=== PATIENT | male | born 1955 | race Caucasian/White ===

== ENCOUNTER 2017-01-29 10:03 | Inpatient (IN) | payer OTHER ==
[~2017-01-29] VITALS: Ht 200.7 cm; Wt 88.9 kg
[2017-01-29 10:14] VITALS: BP 83/55
[2017-01-29] MEDS ORDERED: FERR324T29 PO (10:30)
[2017-01-29] MEDS ORDERED: METO25TA3 PO (10:30)
[2017-01-29] MEDS ORDERED: DESM0.2T4 PO (10:30)
[2017-01-29] MEDS ORDERED: BENZ2TAB27 PO (10:30)
[2017-01-29] MEDS ORDERED: ZOLP5TAB1 PO (10:30)
[2017-01-29] MEDS ORDERED: ASPI81CT27 PO (10:30)
[2017-01-29] MEDS ORDERED: FLUC100T1 PO (10:30)
[2017-01-29] MEDS ORDERED: ARIP1SOL PO (10:30)
[2017-01-29] MEDS ORDERED: NACL 0.9% 1,000 ML IV ONE (10:55)
[2017-01-29 11:24] LABS: HEMATOCRIT 36.8 % (36-52); MEAN CORPUSCULAR HEMOGLOBIN 33 pg (27-31); MEAN CORPUSCULAR HGB CONC 33 g/dL (33-37); MEAN CORPUSCULAR VOLUME 100 fL (80-94); PLATELET COUNT (AUTO) 40 K/uL (140-450); RED BLOOD CELL COUNT(AUTO) 3.66 MIL/uL (4.20-6.10); WHITE BLOOD COUNT (AUTO) 3.3 K/uL (4.8-10.8)
[2017-01-29 11:40] LABS: LACTIC ACID 0.5 mmol/L (0.4-2.0)
[2017-01-29 11:41] LABS: EOSINOPHILS % (MANUAL) 5 % (0-4); LYMPHOCYTES % (MANUAL) 43 % (20-46); MONOCYTES % (MANUAL) 6 % (5-12); NEUTROPHILS % (MANUAL) 46 (43-65)
[2017-01-29 11:42] LABS: ANISOCYTOSIS 1+; PLATELET ESTIMATE DECREASED; SCHISTOCYTES 1+
[2017-01-29 11:43] LABS: INR 1.3 (0.8-1.2); PARTIAL THROMBOPLASTIN TIME 29.4 secs (22-35.6)
[2017-01-29 11:44] LABS: ANION GAP 7.4 (8-16); CALCIUM 7.7 mg/dL (8.5-10.1); CARBON DIOXIDE 31.4 mmol/L (21-32); CREATININE 0.9 mg/dL (0.7-1.3); POTASSIUM 3.8 mmol/L (3.5-5.1)
[2017-01-29 11:51] LABS: ALBUMIN 2.6 g/dL (3.4-5.0); THYROID STIMULATING HORMONE 2.77 uIU/mL (0.34-3.74); TOTAL BILIRUBIN 0.9 mg/dL (0.0-1.0); TOTAL PROTEIN, SERUM 6.4 g/dL (6.4-8.2)
[2017-01-29] MEDS ORDERED: ONDANSETRON 4 MG/2 ML VIAL IVP PRN (13:00)
[2017-01-29] MEDS ORDERED: MORPHINE SULFATE 2 MG/ML SYR IVP PRN (13:00)
[2017-01-29] MEDS ORDERED: ACETAMINOPHEN 325 MG TAB PO PRN (13:00)
[2017-01-29] MEDS ORDERED: NITROGLYCERIN 2% 1 GM PKT TP ONE (13:25)
[2017-01-29] MEDS ORDERED: ENOXAPARIN 100 MG/ML SYR SUBQ ONE (13:25)
[2017-01-29 14:11] LABS: BILIRUBIN,URINE 2+ (NEGATIVE); BLOOD, URINE NEGATIVE (NEGATIVE); LEUKOCYTE ESTERASE ,URINE NEGATIVE (NEGATIVE); NITRITE, URINE NEGATIVE (NEGATIVE); PROTEIN,URINE 2+ (NEGATIVE); UGLUCOSE NEGATIVE (NEGATIVE)
[2017-01-29 14:20] LABS: APPEARANCE,URINE CLEAR (CLEAR)
[2017-01-29 14:21] LABS: COLOR,URINE AMBER (YELLOW)
[2017-01-29 14:26] LABS: BACTERIA,URINE RARE /HPF (None Seen); ICTOTEST NEGATIVE (NEGATIVE); RBC,URINE NONE SEEN /HPF (0-5); WBC,URINE 0-5 (RARE) /HPF (0-5)
[2017-01-29 14:27] LABS: SQUAMOUS EPITHELIAL CELL,UR None Seen /LPF (0-3 (FEW))
[2017-01-29 17:13] VITALS: BP 109/52
[2017-01-29] MEDS: ASPIRIN 325 MG TABEC PO SCH (18:55)
[2017-01-29 19:26] LABS: CREATINE KINASE MB 2.5 ng/mL (0-3.6)
[2017-01-29 20:00] VITALS: BP 124/86
[2017-01-29 21:02] LABS: AMPHETAMINE, URINE NEG. ng/ml (NEG <=1000); BARBITURATE, URINE NEG. ng/ml (NEG <=200); BENZODIAZEPINE, URINE NEG. ng/mL (NEG <=200); CANNABINOID, URINE NEG. ng/mL (NEG <=50); COCAINE, URINE NEG. ng/mL (NEG <=300); OPIATE, URINE NEG. ng/mL (NEG <=2000); PHENCYCLIDINE SCREEN,URINE NEG. ng/mL (NEG <=25)
[2017-01-30] VITALS: BP 116/61
[2017-01-30 04:00] VITALS: BP 119/79
[2017-01-30 06:31] LABS: HEMATOCRIT 37.7 % (36-52); MEAN CORPUSCULAR HEMOGLOBIN 32 pg (27-31); MEAN CORPUSCULAR HGB CONC 32 g/dL (33-37); MEAN CORPUSCULAR VOLUME 101 fL (80-94); RED BLOOD CELL COUNT(AUTO) 3.74 MIL/uL (4.20-6.10); RED CELL DISTRIBUTION WIDTH 18.2 % (11.6-13.7)
[2017-01-30 06:41] LABS: ALBUMIN 2.2 g/dL (3.4-5.0); CALCIUM 7.8 mg/dL (8.5-10.1); CARBON DIOXIDE 32.2 mmol/L (21-32); POTASSIUM 4.2 mmol/L (3.5-5.1); TOTAL BILIRUBIN 0.6 mg/dL (0.0-1.0); TOTAL PROTEIN, SERUM 5.8 g/dL (6.4-8.2)
[2017-01-30 07:29] LABS: PLATELET COUNT (AUTO) 61 K/uL (140-450); WHITE BLOOD COUNT (AUTO) 3.1 K/uL (4.8-10.8)
[2017-01-30 07:30] LABS: EOSINOPHILS % (MANUAL) 4 % (0-4); LYMPHOCYTES % (MANUAL) 43 % (20-46); MONOCYTES % (MANUAL) 5 % (5-12); NEUTROPHILS % (MANUAL) 48 (43-65)
[2017-01-30 07:31] LABS: ANISOCYTOSIS 1+; OVALOCYTES 1+; POIKILOCYTOSIS 1+
[2017-01-30 07:45] VITALS: BP 124/92
[2017-01-30] MEDS: ASPIRIN 325 MG TABEC PO SCH (08:22)
[2017-01-30] MEDS: ATORVASTATIN 20 MG TAB PO SCH (08:22)
[2017-01-30] MEDS: LISINOPRIL 5 MG TAB PO SCH (08:22)
[2017-01-30] MEDS: FUROSEMIDE 40 MG/4 ML VIAL IVP SCH (08:22)
[2017-01-30] MEDS: ENOXAPARIN 40 MG/0.4 ML SYR SUBQ SCH (09:00)
[2017-01-30] MEDS ORDERED: CARVEDILOL 3.125 MG TAB PO SCH (09:00)
[2017-01-30 12:00] VITALS: BP 111/67
[2017-01-30] MEDS ORDERED: DILTIAZEM 25 MG/5 ML VIAL IVP PRN (13:15)
[2017-01-30 13:25] LABS: CREATINE KINASE MB 1.8 ng/mL (0-3.6)
[2017-01-30 16:00] VITALS: BP 113/56
[2017-01-30 20:00] VITALS: BP 111/82
[2017-01-30] MEDS ORDERED: PNEUMOCOCCAL VACCINE 23 MCG/0.5 ML VIAL IMVAC SCH (20:00)
[2017-01-31] VITALS: BP 113/84
[2017-01-31 04:00] VITALS: BP 127/96
[2017-01-31 06:03] LABS: HEMOGLOBIN 14.5 g/dL (12.0-18.0); MEAN CORPUSCULAR HEMOGLOBIN 33 pg (27-31); MEAN CORPUSCULAR HGB CONC 33 g/dL (33-37); MEAN CORPUSCULAR VOLUME 100 fL (80-94); PLATELET COUNT (AUTO) 41 K/uL (140-450); RED BLOOD CELL COUNT(AUTO) 4.39 MIL/uL (4.20-6.10); RED CELL DISTRIBUTION WIDTH 18.3 % (11.6-13.7); WHITE BLOOD COUNT (AUTO) 4.4 K/uL (4.8-10.8)
[2017-01-31 06:27] LABS: ANION GAP 8.7 (8-16); CALCIUM 8.4 mg/dL (8.5-10.1); CARBON DIOXIDE 32.5 mmol/L (21-32); CREATININE 0.9 mg/dL (0.7-1.3); POTASSIUM 4.2 mmol/L (3.5-5.1); TOTAL BILIRUBIN 0.9 mg/dL (0.0-1.0); TOTAL PROTEIN, SERUM 7.3 g/dL (6.4-8.2)
[2017-01-31 07:03] LABS: BAND % (MANUAL) 5 % (0-8); EOSINOPHILS % (MANUAL) 10 % (0-4); LYMPHOCYTES % (MANUAL) 27 % (20-46); MONOCYTES % (MANUAL) 3 % (5-12); NEUTROPHILS % (MANUAL) 55 (43-65)
[2017-01-31 07:04] LABS: ANISOCYTOSIS 1+; POIKILOCYTOSIS 1+
[2017-01-31 08:00] VITALS: BP 124/72
[2017-01-31] MEDS: FUROSEMIDE 40 MG/4 ML VIAL IVP SCH (08:36)
[2017-01-31] MEDS: CARVEDILOL 6.25 MG TAB PO SCH (08:37)
[2017-01-31] MEDS: LISINOPRIL 5 MG TAB PO SCH (08:37)
[2017-01-31] MEDS: ATORVASTATIN 20 MG TAB PO SCH (08:37)
[2017-01-31] MEDS: ASPIRIN 325 MG TABEC PO SCH (08:37)
[2017-01-31] MEDS: ENOXAPARIN 40 MG/0.4 ML SYR SUBQ SCH (08:38)
[2017-01-31 12:00] VITALS: BP 112/71
[2017-01-31] MEDS ORDERED: ASPI325T49 PO (14:44)
[2017-01-31] MEDS ORDERED: CARV6.25 PO (14:44)
[2017-01-31] MEDS ORDERED: ATOR20TA PO (14:45)
[2017-01-31] MEDS ORDERED: FURO-570 PO (14:46)
[2017-01-31] MEDS ORDERED: LISI2.5T12 PO (14:47)
[2017-01-31 16:00] VITALS: BP 112/84
[2017-01-31 20:00] VITALS: BP 124/79
[2017-02-01] VITALS: BP 124/95
[2017-02-01 04:00] VITALS: BP 147/94
[2017-02-01 07:24] LABS: BASOPHILS # (AUTO) 0.2 K/uL (0.00-0.22); BASOPHILS % (AUTO) 4.7 % (0.0-2.0); EOSINOPHILS # (AUTO) 0.1 K/uL (0-0.4); EOSINOPHILS % (AUTO) 2.3 % (0.0-4.0); HEMATOCRIT 47.9 % (36-52); HEMOGLOBIN 15.6 g/dL (12.0-18.0); LYMPHOCYTES # (AUTO) 1.5 K/uL (2.0-11.5); LYMPHOCYTES % (AUTO) 32.4 % (20.5-51.1); MEAN CORPUSCULAR HEMOGLOBIN 33 pg (27-31); MEAN CORPUSCULAR HGB CONC 33 g/dL (33-37); MEAN CORPUSCULAR VOLUME 100 fL (80-94); MONOCYTES # (AUTO) 0.4 K/uL (0.8-1.0); MONOCYTES % (AUTO) 7.9 % (1.7-9.3); NEUTROPHILS # (AUTO) 2.4 K/uL (1.8-7.7); NEUTROPHILS % (AUTO) 52.7 % (42.2-75.2); PLATELET COUNT (AUTO) 77 K/uL (140-450); RED BLOOD CELL COUNT(AUTO) 4.77 MIL/uL (4.20-6.10); RED CELL DISTRIBUTION WIDTH 18.1 % (11.6-13.7); WHITE BLOOD COUNT (AUTO) 4.6 K/uL (4.8-10.8)
[2017-02-01 07:28] LABS: ALBUMIN 2.6 g/dL (3.4-5.0); ANION GAP 7.2 (8-16); CALCIUM 8.5 mg/dL (8.5-10.1); CARBON DIOXIDE 34.3 mmol/L (21-32); CREATININE 0.8 mg/dL (0.7-1.3); POTASSIUM 4.5 mmol/L (3.5-5.1); TOTAL BILIRUBIN 1.1 mg/dL (0.0-1.0); TOTAL PROTEIN, SERUM 6.7 g/dL (6.4-8.2)
[2017-02-01 07:59] VITALS: BP 130/64
[2017-02-01] MEDS: ENOXAPARIN 40 MG/0.4 ML SYR SUBQ SCH (09:00)
[2017-02-01] MEDS: ATORVASTATIN 20 MG TAB PO SCH (09:13)
[2017-02-01] MEDS: ASPIRIN 325 MG TABEC PO SCH (09:14)
[2017-02-01] MEDS: CARVEDILOL 6.25 MG TAB PO SCH (09:14)
[2017-02-01] MEDS: FUROSEMIDE 40 MG/4 ML VIAL IVP SCH (09:14)
[2017-02-01] MEDS: LISINOPRIL 5 MG TAB PO SCH (09:14)
[2017-02-01 12:00] VITALS: BP 111/70
== END 2017-02-01 15:30 | DRG 293 ==
LOC: MED 10:03 → MTU 13:01
PROVIDERS: ADMIT Hospitalist; ATTEND Hospitalist
DX: I11.0 Hypertensive heart disease with heart failure (principal); D69.6 Thrombocytopenia, unspecified; E86.0 Dehydration; I49.5 Sick sinus syndrome; I48.91 Unspecified atrial fibrillation; F29 Unspecified psychosis not due to a substance or known physiological condition; Z88.8 Allergy status to other drugs, medicaments and biological substances; Z79.82 Long term (current) use of aspirin; I50.43 Acute on chronic combined systolic (congestive) and diastolic (congestive) heart failure; Z79.899 Other long term (current) drug therapy
CPT/HCPCS: 36415; 71010; 71260; 80053; 80305; 81001; 82550; 82553; 83605; 83880; 84443; 84484; 85025; 85379; 85610; 85730; 87081; 90732; 93005; 93970; 96360; 96372; 97116; 97163-GP; 99285; J1650; J1940; J3490; J7030; Q0092; Q9967

== ENCOUNTER 2017-04-05 16:23 | Emergency (ER) | payer OTHER ==
[~2017-04-05] VITALS: Ht 200.7 cm; Wt 86.2 kg
[~2017-04-05 16:23] MED LIST: ARIP1SOL PO; ASPI325T49 PO; ATOR20TA PO; BENZ2TAB27 PO; CARV6.25 PO; DESM0.2T2 PO; FERR324T29 PO; FLUC100T1 PO; FURO-570 PO; LISI2.5T12 PO
[2017-04-05 16:30] VITALS: BP 107/55
[2017-04-05 18:25] LABS: HEMOGLOBIN 10.3 g/dL (12.0-18.0); MEAN CORPUSCULAR HEMOGLOBIN 33 pg (27-31); MEAN CORPUSCULAR HGB CONC 32 g/dL (33-37); MEAN CORPUSCULAR VOLUME 102 fL (80-94); PLATELET COUNT (AUTO) 115 K/uL (140-450); RED BLOOD CELL COUNT(AUTO) 3.14 MIL/uL (4.20-6.10); RED CELL DISTRIBUTION WIDTH 15.4 % (11.6-13.7); WHITE BLOOD COUNT (AUTO) 3.6 K/uL (4.8-10.8)
[2017-04-05 18:33] LABS: ANION GAP 9.7 (8-16); CARBON DIOXIDE 28.7 mmol/L (21-32); CREATININE 0.8 mg/dL (0.7-1.3); POTASSIUM 4.4 mmol/L (3.5-5.1)
[2017-04-05 18:38] LABS: ALBUMIN 2.9 g/dL (3.4-5.0); TOTAL BILIRUBIN 0.4 mg/dL (0.0-1.0)
[2017-04-05 18:48] LABS: EOSINOPHILS % (MANUAL) 1 % (0-4); LYMPHOCYTES % (MANUAL) 32 % (20-46); MONOCYTES % (MANUAL) 6 % (5-12)
[2017-04-05 19:12] VITALS: BP 123/81
== END 2017-04-05 19:12 | disposition home or self-care (01) ==
LOC: MED 16:23
DX: I50.9 Heart failure, unspecified (principal); I10 Essential (primary) hypertension; E78.5 Hyperlipidemia, unspecified; F31.9 Bipolar disorder, unspecified; F03.90 Unspecified dementia, unspecified severity, without behavioral disturbance, psychotic disturbance, mood disturbance, and anxiety; F20.9 Schizophrenia, unspecified; Z79.899 Other long term (current) drug therapy; Z88.8 Allergy status to other drugs, medicaments and biological substances
CPT/HCPCS: 36415; 71010; 80053; 83880; 84484; 85025; 99285; Q0092